=== PATIENT | male | born 1970 | race African-American/Black ===

== ENCOUNTER 2024-11-25 12:40 | Emergency (ER) | payer BC ==
[~2024-11-25] VITALS: Ht 185.4 cm; Wt 99.8 kg
[2024-11-25] MEDS ORDERED: METF-440 PO ×2 (12:52→18:42)
[2024-11-25] MEDS ORDERED: AMLO10TA59 PO (12:52)
[2024-11-25] MEDS ORDERED: ASPI81TA31 PO (12:52)
[2024-11-25] MEDS ORDERED: LOSA1TAB36 PO (12:52)
[2024-11-25] MEDS: IV NORMAL SALINE 1000 ML BAG IV ONE (13:28)
[2024-11-25 13:31] LABS: BASOPHILS # (AUTO) 0.1 K/UL (0.0-0.2); BASOPHILS % (AUTO) 0.8 % (0.0-2.0); EOSINOPHILS # (AUTO) 0.1 K/uL (0.0-0.7); EOSINOPHILS % (AUTO) 1.3 % (0.0-7.0); HEMATOCRIT 44.6 % (36.7-47.1); HEMOGLOBIN 15.1 g/dL (12.5-16.3); LYMPHOCYTES # (AUTO) 1.6 K/uL (0.8-4.8); MEAN CORPUSCULAR HEMOGLOBIN 30.1 uug (23.8-33.4); MEAN CORPUSCULAR HGB CONC 34 g/dL (32.5-36.3); MEAN CORPUSCULAR VOLUME 88.9 fL (73.0-96.2); MONOCYTES # (AUTO) 0.5 K/uL (0.1-1.30); MONOCYTES % (AUTO) 7.8 % (0.0-11.0); NEUTROPHILS # (AUTO) 4.3 K/uL (1.8-8.9); NEUTROPHILS % (AUTO) 66.1 % (38.5-71.5); PLATELET COUNT (AUTO) 251 K/uL (152-348); RED BLOOD CELL COUNT(AUTO) 5.01 MIL/uL (4.06-5.63); RED CELL DISTRIBUTION WIDTH 12.9 % (12.1-16.2); WHITE BLOOD COUNT (AUTO) 6.5 K/uL (3.6-10.2)
[2024-11-25 13:33] LABS: DIFFERENTIAL COMMENT 1
[2024-11-25 13:38] LABS: *BILIRUBIN,URIN NEGATIVE (NEGATIVE); *BLOOD, URINE NEGATIVE (NEGATIVE); *CLARITY,URINE CLEAR (CLEAR); *COLOR,URINE YELLOW (YELLOW); *KETONES,URINE 1+ (NEGATIVE); *PROTEIN,URINE NEGATIVE (NEGATIVE); *UROBILINOGEN,URINE 0.2 E.U./dl (NORMAL); LEUKOCYTE ESTERASE ,URINE NEGATIVE (NEGATIVE); NITRITE, URINE NEGATIVE (NEGATIVE); PH,URINE 5.5 (5.0-8.0); UGLUCOSE 2+ (NEGATIVE)
[2024-11-25 13:44] LABS: BACTERIA,URINE FEW /HPF (NONE SEEN); WBC,URINE 0-3 /HPF (0-3)
[2024-11-25 13:45] LABS: CALCIUM 9.5 mg/dL (8.5-10.1); CREATININE 1.5 mg/dL (0.6-1.3); POTASSIUM 4.2 mmol/L (3.5-5.1)
[2024-11-25] MEDS: IV NS 1000 ML 2,000 ML IV ONE (14:30)
[2024-11-25] MEDS: IV NS 1000 ML 1,000 ML IV ONE ×2 (15:26→17:30)
[2024-11-25 17:34] LABS: CALCIUM 7.9 mg/dL (8.5-10.1); CREATININE 1.1 mg/dL (0.6-1.3); POTASSIUM 4.7 mmol/L (3.5-5.1)
[2024-11-25] MEDS ORDERED: FLAS1KIT2 TP (18:42)
[2024-11-25] MEDS ORDERED: FLAS1EAC2 TP (18:42)
[2024-11-25 19:07] VITALS: BP 149/96; O2SAT 94
== END 2024-11-25 19:07 | disposition home or self-care (01) ==
LOC: ER 12:44
DX: E11.00 Type 2 diabetes mellitus with hyperosmolarity without nonketotic hyperglycemic-hyperosmolar coma (NKHHC) (principal); E11.10 Type 2 diabetes mellitus with ketoacidosis without coma; Z79.82 Long term (current) use of aspirin; Z79.84 Long term (current) use of oral hypoglycemic drugs
CPT/HCPCS: 99285; 96360; 96361; 80048 ×2; 81001; 82962 ×2; 83735; 85025; 36415; 84681; J7040 ×5; A4606; A4663

== ENCOUNTER 2024-12-07 23:04 | Inpatient (IN) | payer BC ==
[~2024-12-07] VITALS: Ht 182.9 cm; Wt 95.3 kg
[~2024-12-07 23:04] MED LIST: AMLO10TA59 PO; ASPI81TA31 PO; FLAS1EAC2 TP; FLAS1KIT2 TP; LOSA1TAB36 PO; METF-440 PO
[2024-12-08] VITALS (23 sets, daily range): BP systolic 117–139; BP diastolic 82–102; TEMP 97.5–98; O2SAT 93–98
[2024-12-08] MEDS: IV NORMAL SALINE 1000 ML BAG IV ONE (00:15)
[2024-12-08 00:27] LABS: BASOPHILS % (AUTO) 0.7 % (0.0-2.0); EOSINOPHILS # (AUTO) 0.1 K/uL (0.0-0.7); EOSINOPHILS % (AUTO) 1.3 % (0.0-7.0); HEMATOCRIT 42.6 % (36.7-47.1); HEMOGLOBIN 14.3 g/dL (12.5-16.3); LYMPHOCYTES # (AUTO) 1.9 K/uL (0.8-4.8); LYMPHOCYTES % (AUTO) 28.4 % (20.5-51.5); MEAN CORPUSCULAR HEMOGLOBIN 30.3 uug (23.8-33.4); MEAN CORPUSCULAR HGB CONC 34 g/dL (32.5-36.3); MEAN CORPUSCULAR VOLUME 90.1 fL (73.0-96.2); MONOCYTES # (AUTO) 0.6 K/uL (0.1-1.30); MONOCYTES % (AUTO) 8.3 % (0.0-11.0); NEUTROPHILS # (AUTO) 4.1 K/uL (1.8-8.9); NEUTROPHILS % (AUTO) 61.3 % (38.5-71.5); PLATELET COUNT (AUTO) 100 K/uL (152-348); RED BLOOD CELL COUNT(AUTO) 4.73 MIL/uL (4.06-5.63); WHITE BLOOD COUNT (AUTO) 6.7 K/uL (3.6-10.2)
[2024-12-08 00:33] LABS: DIFFERENTIAL COMMENT 1
[2024-12-08 00:36] LABS: CALCIUM 9.9 mg/dL (8.5-10.1); CARBON DIOXIDE 22 mmol/L (21-32); CHLORIDE 89 mmol/L (98-107); MAGNESIUM 2.3 mg/dL (1.8-2.4); POTASSIUM 4.1 mmol/L (3.5-5.1); SODIUM SERUM 127 mmol/L (136-145); UREA NITROGEN, BLOOD 41 mg/dL (7-18)
[2024-12-08 00:41] LABS: GLUCOSE > 500 mg/dL (74-106)
[2024-12-08 00:43] LABS: LACTIC ACID 2.8 mmol/L (0.4-2.0)
[2024-12-08 00:46] LABS: ALANINE AMINOTRANSFERASE 29 U/L (16-63); ALBUMIN 3.7 g/dL (3.4-5.0); ALKALINE PHOSPHATASE 106 U/L (50-136); ASPARTATE AMINOTRANSFERASE 15 U/L (15-37); BILIRUBIN,DIRECT 0.2 mg/dL (0.0-0.2); NT-PRO BNP 35 pg/mL (0-125); TOTAL PROTEIN, SERUM 8.6 g/dL (6.4-8.2)
[2024-12-08] MEDS ORDERED: AZITHROMYCIN 250 MG TABLET ONE ×2 (00:56→00:58)
[2024-12-08] MEDS ORDERED: CEFTRIAXONE /D5W 50ML IVPB **ER PYXIS IV ONE (00:56)
[2024-12-08 01:02] LABS: *BILIRUBIN,URIN NEGATIVE (NEGATIVE); *BLOOD, URINE NEGATIVE (NEGATIVE); *CLARITY,URINE CLEAR (CLEAR); *COLOR,URINE YELLOW (YELLOW); *KETONES,URINE 1+ (NEGATIVE); *PROTEIN,URINE NEGATIVE (NEGATIVE); *UROBILINOGEN,URINE 0.2 E.U./dl (NORMAL); LEUKOCYTE ESTERASE ,URINE NEGATIVE (NEGATIVE); NITRITE, URINE NEGATIVE (NEGATIVE); PH,URINE 5.5 (5.0-8.0); UGLUCOSE 3+ (NEGATIVE)
[2024-12-08 01:05] LABS: ACETONE, SERUM SMALL (NEGATIVE)
[2024-12-08] MEDS: CEFTRIAXONE 1 G in IV DEXTROSE 5% 50 ML IV ONE (01:05)
[2024-12-08] MEDS: AZITHROMYCIN 250 MG TABLET PO ONE (01:05)
[2024-12-08] MEDS ORDERED: INSULIN REGULAR, HUMAN 100 UNIT in IV NORMAL SALINE 100 ML IV STA (01:44)
[2024-12-08 01:56] LABS: CALCIUM 8.7 mg/dL (8.5-10.1); CARBON DIOXIDE 21 mmol/L (21-32); CHLORIDE 95 mmol/L (98-107); CREATININE 1.6 mg/dL (0.6-1.3); POTASSIUM 3.8 mmol/L (3.5-5.1); SODIUM SERUM 132 mmol/L (136-145); UREA NITROGEN, BLOOD 39 mg/dL (7-18)
[2024-12-08 01:58] LABS: GLUCOSE > 500 mg/dL (74-106)
[2024-12-08] MEDS ORDERED: INSULIN REGULAR, HUMAN 1000 UNIT/10 ML VIAL ONE (02:01)
[2024-12-08] MEDS ORDERED: IV 0.9% SODIUM CHLORID+ 20 KCL 1,000 ML ONE (02:03)
[2024-12-08] MEDS: IV 0.9% SODIUM CHLORID+ 20 KCL 1,000 ML IV PRN (02:15)
[2024-12-08] MEDS: INSULIN REGULAR, HUMAN 100 UNIT in IV NORMAL SALINE 100 ML IV PRN (02:38)
[2024-12-08] MEDS ORDERED: ACETAMINOPHEN 325 MG TABLET PO PRN (03:00)
[2024-12-08] MEDS ORDERED: ZOLPIDEM 5 MG TABLET PO PRN (03:00)
[2024-12-08] MEDS ORDERED: ONDANSETRON 4 MG/2 ML VIAL IV PRN (03:00)
[2024-12-08] MEDS ORDERED: MAGNESIUM HYDROXIDE 30 ML LIQUID UDC PO PRN (03:00)
[2024-12-08] MEDS ORDERED: REMEDY ESSENTIAL ZINC PASTE 113 GM TP PRN (03:00)
[2024-12-08] MEDS ORDERED: IV NS 1000 ML 1,000 ML IV PRN (03:00)
[2024-12-08] MEDS ORDERED: INSULIN REGULAR, HUMAN 100 UNIT in IV NORMAL SALINE 99 ML IV PRN (03:15)
[2024-12-08] MEDS ORDERED: DEXTROSE 50% 50 ML DISP.SYRIN IV PRN ×3 (03:15→15:30)
[2024-12-08 03:50] LABS: CALCIUM 8.8 mg/dL (8.5-10.1); CREATININE 1.4 mg/dL (0.6-1.3); MAGNESIUM 1.9 mg/dL (1.8-2.4); POTASSIUM 3.4 mmol/L (3.5-5.1)
[2024-12-08] MEDS: BLOOD SUGAR DIAGNOSTIC 1 EACH STRIP VI SCH ×3 (04:15→15:43)
[2024-12-08] MEDS: POTASSIUM CHLORIDE 50 ML IV SCH ×2 (04:16→06:17)
[2024-12-08] MEDS ORDERED: IV D5W-0.45% NS +20 KCL 1,000 ML IV SCH (05:45)
[2024-12-08] MEDS ORDERED: IV D5W-0.45% NS +20 KCL 0 ML IV ONE (06:09)
[2024-12-08 06:11] LABS: CALCIUM 8.8 mg/dL (8.5-10.1); CREATININE 1.3 mg/dL (0.6-1.3); MAGNESIUM 2.1 mg/dL (1.8-2.4); POTASSIUM 3.2 mmol/L (3.5-5.1)
[2024-12-08 06:17] LABS: CALCIUM 8.6 mg/dL (8.5-10.1); CREATININE 1.2 mg/dL (0.6-1.3); POTASSIUM 3.3 mmol/L (3.5-5.1)
[2024-12-08] MEDS ORDERED: IV D5%-1/2NS-KCL 10 MEQ 1,000 ML ONE (06:29)
[2024-12-08] MEDS: IV D5%-1/2NS-KCL 10 MEQ 1,000 ML IV PRN (06:33)
[2024-12-08] MEDS: INSULIN REGULAR, HUMAN 1000 UNIT/10 ML VIAL SQ PRN ×2 (07:44→16:21)
[2024-12-08] MEDS: AMLODIPINE 10 MG TABLET PO SCH (08:24)
[2024-12-08] MEDS: ASPIRIN 81 MG TAB.CHEW PO SCH (08:24)
[2024-12-08] MEDS ORDERED: CHOL500050 PO (08:32)
[2024-12-08] MEDS ORDERED: IRBE1TAB33 PO (08:32)
[2024-12-08 11:33] LABS: CALCIUM 7.7 mg/dL (8.5-10.1); POTASSIUM 3.9 mmol/L (3.5-5.1)
[2024-12-08] MEDS: INSULIN REGULAR, HUMAN 300 UNITS/3 ML VIAL SQ PRN (21:01)
[2024-12-08] MEDS: INSULIN GLARGINE,HUM 300 UNITS/3 ML CARTRIDGE SQ SCH (21:05)
[2024-12-09 05:03] VITALS: BP 118/87; TEMP 97.3; O2SAT 97
[2024-12-09 06:50] LABS: BASOPHILS # (AUTO) 0.1 K/UL (0.0-0.2); BASOPHILS % (AUTO) 0.9 % (0.0-2.0); EOSINOPHILS # (AUTO) 0.2 K/uL (0.0-0.7); HEMATOCRIT 39.2 % (36.7-47.1); HEMOGLOBIN 13.3 g/dL (12.5-16.3); LYMPHOCYTES # (AUTO) 1.7 K/uL (0.8-4.8); LYMPHOCYTES % (AUTO) 30.9 % (20.5-51.5); MEAN CORPUSCULAR HEMOGLOBIN 30.4 uug (23.8-33.4); MEAN CORPUSCULAR HGB CONC 34 g/dL (32.5-36.3); MEAN CORPUSCULAR VOLUME 89.4 fL (73.0-96.2); MONOCYTES # (AUTO) 0.4 K/uL (0.1-1.30); MONOCYTES % (AUTO) 7.5 % (0.0-11.0); NEUTROPHILS # (AUTO) 3.2 K/uL (1.8-8.9); NEUTROPHILS % (AUTO) 56.7 % (38.5-71.5); PLATELET COUNT (AUTO) 214 K/uL (152-348); RED BLOOD CELL COUNT(AUTO) 4.39 MIL/uL (4.06-5.63); RED CELL DISTRIBUTION WIDTH 12.8 % (12.1-16.2); WHITE BLOOD COUNT (AUTO) 5.6 K/uL (3.6-10.2)
[2024-12-09 07:01] LABS: DIFFERENTIAL COMMENT 1
[2024-12-09 07:07] LABS: ALBUMIN 2.8 g/dL (3.4-5.0); BILIRUBIN,TOTAL 0.9 mg/dL (0.2-1.0); CALCIUM 8.2 mg/dL (8.5-10.1); MAGNESIUM 1.7 mg/dL (1.8-2.4); PHOSPHOROUS 2.6 mg/dL (2.5-4.9); POTASSIUM 3.8 mmol/L (3.5-5.1); TOTAL PROTEIN, SERUM 6.9 g/dL (6.4-8.2)
[2024-12-09 07:19] LABS: THYROID STIMULATING HORMONE 1.064 mIU/mL (0.358-3.740)
[2024-12-09] MEDS: MAGNESIUM OXIDE 400 MG TABLET PO ONE (10:31)
[2024-12-09] MEDS: METFORMIN XR 500 MG TAB.SR.24H PO SCH (12:25)
[2024-12-09] MEDS: glipiZIDE 5 MG TABLET PO ONE (12:26)
[2024-12-09 13:22] VITALS: BP 148/69; TEMP 98.1; O2SAT 99
[2024-12-09] MEDS ORDERED: GLIP5TAB13 PO (13:42)
[2024-12-09] MEDS ORDERED: METF-886 PO (13:42)
[2024-12-09] MEDS ORDERED: ATOR10TA PO (13:42)
[2024-12-09] MEDS ORDERED: glipiZIDE 5 MG TABLET PO SCH (16:30)
[2024-12-09 20:43] LABS: ABG BASE EXCESS -2.4 mmol/L (-2.0-3.0); ABG HCO3 21.1 mmol/L (21.0-28.0); ABG PCO2 33.2 mmHg (35.0-48.0); ABG PH 7.422 (7.350-7.450); ABG PO2 66.3 mmHg (83.0-108.0); ABG SITE LEFT RADIAL; ABG TOTAL HEMOGLOBIN 14.7 G/dL (13.5-17.5); AaDO2 93.7 mmHg; COHb 0.6 % (0.5-1.5); MetHb 0.2 % (0.0-1.5); O2Hb 92.1 % (94.0-98.0)
[2024-12-09] MEDS ORDERED: ATORVASTATIN 10 MG TABLET PO SCH (21:00)
[2024-12-12] MEDS ORDERED: INSU3INS6 SQ (12:38)
[2024-12-12] MEDS ORDERED: INSU200I SQ (12:38)
== END 2024-12-09 14:30 | disposition home or self-care (01) | DRG 637 ==
LOC: ER 23:09 → ICU IN 12-08 02:51 → CCU 12-08 03:18 → MEDSURG3 12-08 14:48
PROVIDERS: ADMIT Nurse Practitioner Acute Care; ATTEND Nurse Practitioner Acute Care
DX: E11.10 Type 2 diabetes mellitus with ketoacidosis without coma (principal); N17.0 Acute kidney failure with tubular necrosis; E87.1 Hypo-osmolality and hyponatremia; E86.1 Hypovolemia; I10 Essential (primary) hypertension; J98.4 Other disorders of lung; M62.838 Other muscle spasm; E88.09 Other disorders of plasma-protein metabolism, not elsewhere classified; E66.9 Obesity, unspecified; Z68.28 Body mass index [BMI] 28.0-28.9, adult; R94.31 Abnormal electrocardiogram [ECG] [EKG]; J33.8 Other polyp of sinus; J34.1 Cyst and mucocele of nose and nasal sinus; E78.5 Hyperlipidemia, unspecified; Z79.84 Long term (current) use of oral hypoglycemic drugs; Z79.82 Long term (current) use of aspirin; Z79.899 Other long term (current) drug therapy
CPT/HCPCS: 36415; 36600; 70450; 71045; 82803; 83605; 83735; 84100; 84443; 84484; 85025; 85730; 87040; 87086; A4606; G0378; J0696; J1815; J3480; J3490; J7040; Q0144